=== PATIENT | male | born 1950 | race Caucasian/White ===

== ENCOUNTER 2016-05-22 04:59 | Inpatient (IN) | payer BC ==
[2016-05-15 11:02] LABS: BASOPHILS 0.5 %; BASOPHILS ABSOLUTE 0.03 10/3/uL (0.0-0.16); EOSINOPHILS ABSOLUTE 0.12 10/3/uL (0.0-0.53); HEMOGLOBIN 14.6 g/dL (13.6-17.8); IMMATURE GRANULOCYTES 0.2 %; IMMATURE GRANULOCYTES ABSOLUTE 0.01 10/3/uL (0.0-0.11); LYMPHOCYTES 35.2 %; LYMPHOCYTES ABSOLUTE 2.09 10/3/uL (0.67-4.30); MEAN CORPUSCULAR VOLUME 88.3 fL (80-100); MONOCYTES 12.6 %; MONOCYTES ABSOLUTE 0.75 10/3/uL (0.21-1.20); NEUTROPHILS 49.5 %; NEUTROPHILS ABSOLUTE 2.93 10/3/uL (2.02-8.40); PLATELET COUNT 207 10/3/uL (150-400); RBC DISTRIBUTION WIDTH 12.9 % (12.0-16.0); RED CELL COUNT 4.87 10/6/uL (4.7-6.1); WHITE BLOOD CELLS 5.9 10/3/uL (4.5-10.5)
[2016-05-15 11:04] LABS: MANUAL DIFF NO %
[2016-05-15 11:13] LABS: INTERNATIONAL NORMAL RATI 1.1 UNITS (-); PARTIAL THROMBO TIME 29.7 SEC (22.5-37.2); PROTIME (NOT ORD) 14.2 SEC (12.0-14.5)
[2016-05-15 11:18] LABS: BUN (BLOOD UREA NITROGEN) 28 MG/DL (6-23); CHLORIDE, SERUM 104 MMOL/L (96-112); CO2 (CARBON DIOXIDE) 27 MMOL/L (24-34); CREATININE 1.65 MG/DL (0.70-1.30); GFR AFRICAN AMERICAN 50 ML/MIN (>=60); GFR NON AFRICAN AMERICAN 44 ML/MIN (>=60); GLUCOSE, SERUM 89 MG/DL (60-99); POTASSIUM, SERUM 3.7 MMOL/L (3.5-5.3); SODIUM, SERUM 142 MMOL/L (135-148)
[2016-05-15 11:40] LABS: ASCORBIC ACID (UR NOT ORDER) NEG (NEG); BILIRUBIN, URINE NEGATIVE (NEG); KETONE, URINE TRACE MG/DL (NEG); LEUKOCYTE ESTERASE(NOT OR NEG (NEG); WBC (NOT ORDERED) (RFLEX) < 1 (0-5)
--- NOTE | ~2016-05-22 | HP ---
History And Physical [address] [place]. [address] NAME: BILL IBARRA JR : 54 STATUS : [place] [facility] [place]#: [id number] AGE: 65 ADM/REG DATE : MR#: [id number] REPORT SERV DATE: 05/22/16 DICTATED BY: BYRON DURAN DATE: 05/21/16 REPORT STATUS : Draft TRANSCRIBED BY: MODL DATE: 05/21/16 DATE OF ADMISSION: 05/22/2016 CHIEF COMPLAINT: Adenocarcinoma of the prostate, clinical stage T1c, Holly score 4+3=7, maximum PSA 5.6. HISTORY OF PRESENT ILLNESS: Mr. Ibarra is a 65-year-old male who was recently diagnosed with adenocarcinoma of the prostate, worsening obstructive voiding symptoms and elevated PSA led to the biopsy. Biopsy was positive from the right base and right apex. Different treatment options and management of prostate cancer were proposed to the patient. He has decided to proceed with laparoscopic robot-assisted radical prostatectomy. He will be admitted after that procedure. The patient also has an umbilical hernia, which will be repaired at the same time. The patient reports [id number] obstructive voiding symptoms and erectile dysfunction. PAST MEDICAL HISTORY: Chronic kidney disease, diabetes mellitus, gout, dyslipidemia and hypertension. PAST SURGICAL HISTORY: Includes appendectomy in 1984. MEDICATIONS: Allopurinol, amlodipine, aspirin which has been on hold, carvedilol, tamsulosin, lisinopril, simvastatin, tramadol. ALLERGIES: NO KNOWN DRUG ALLERGIES. SOCIAL HISTORY: He does not smoke. He reports occasional alcohol use. FAMILY HISTORY: Negative for prostate cancer. REVIEW OF SYSTEMS: He wears glasses. Has heartburn with some leg swelling. Hoarseness and ringing in the ears. PHYSICAL EXAMINATION: GENERAL: Shows a well-developed, well-nourished male, in no acute distress. He is afebrile. VITAL SIGNS: Stable with sclerae anicteric. NECK: Supple. LUNGS: Clear. HEART: Regular rate and rhythm. ABDOMEN: Soft, nontender. There are no palpable abdominal masses. There is an umbilical hernia. No inguinal hernias. : Penis normal. Testes are descended. Nontender. No testicular masses. No scrotal masses. History And Physical [address] [address] NAME: BILL IBARRA JR : 54 STATUS : [place] [facility] [place] PAT#: [id number] AGE: 65 ADM/REG DATE : MR#: [id number] REPORT SERV DATE: 05/22/16 DICTATED BY: BYRON DURAN DATE: 05/21/16 REPORT STATUS : Draft TRANSCRIBED BY: LOBO DATE: 05/21/16 RECTAL: The prostate is moderately enlarged. There are no nodules. EXTREMITIES: Lower extremities show no deformities. IMPRESSION: Adenocarcinoma of the prostate. Holly score 3+4=7 from the right base, right mid and right apex. PLAN: Laparoscopic robot-assisted radical prostatectomy and umbilical hernia repair. Potential complications of bleeding, infection, urinary incontinence, bladder neck obstruction, loss of ejaculate, erectile dysfunction, and injury to adjacent structures such as bladder, ureters, rectum, colon, intestine, nerves, as well as bowel obstruction and complications have all been explained to the patient. He both manually and verbally consents to proceed. TAI/LOBO Byron Duran M.D. / [id number]
--- NOTE | ~2016-05-22 | OP ---
Record Of Operation [facility] [address] [place]. [address] NAME: BILL BARR JR : 54 STATUS : ADM IN PAT#: [id number] AGE: 65 ADM/REG DATE : 05/22/16 MR#: [id number] REPORT SERV DATE: 05/23/16 DICTATED BY: BYRON GAN DATE: 05/22/16 REPORT STATUS : Draft TRANSCRIBED BY: MODL DATE: 05/22/16 DATE OF PROCEDURE: 05/22/2016 PREOPERATIVE DIAGNOSES: 1. Adenocarcinoma of the prostate, clinical stage T1c, Houston score 3+4=7, PSA of 5.2. 2. Umbilical hernia. POSTOPERATIVE DIAGNOSES: 1. Adenocarcinoma of the prostate, clinical stage T1c, Holly score 3+4=7, PSA of 5.2. 2. Umbilical hernia. PROCEDURES: 1. Laparoscopic robot-assisted radical prostatectomy. 2. Umbilical hernia repair. RAILROAD SIGNAL AND SWITCH OPERATOR: Ambrose Landry. ANESTHESIA: General and local. BLOOD LOSS: Estimated at 175 mL. FLUID REPLACEMENT: 2 L of crystalloid. DRAINS: An 18-Somali Gan catheter and a 15 mm Eliazar drain in the prevesical space. INDICATION: A 65-year-old male, recently diagnosed with adenocarcinoma of the prostate. He also has a symptomatic umbilical hernia. TECHNIQUE: The patient was identified and brought to the operating room, administered anesthetic agent by the Anesthesia Service, and intubated. He was positioned in the dorsal lithotomy position and appropriately padded and secured to the table. The patient has a symptomatic umbilical hernia. Marcaine plain 0.5% was used to infiltrate around the right side of the umbilicus. A curvilinear incision is made around the umbilicus. A 16-Somali Gan catheter was passed in the bladder and left for drainage. I then exposed the hernia sac and dissected off the undersurface of the skin and the subcutaneous tissues. The fascia was identified surrounding the hernia defect. I mobilized the hernia sac off the fascial edge. I then opened the hernia sac sharply, amputated and sent it for permanent section. I now have access into the peritoneal space. Balloon trocar was placed into the peritoneal space. I had to temporarily close the hernia defects so I can have a good seal and create a pneumoperitoneum. [id number]-kd-kqmjv sutures were used to taper the defect around the balloon trocar. I then insufflated the abdomen with carbon dioxide, creating a pneumoperitoneum. The patient was placed in steep Trendelenburg. A da Hank laparoscope was placed through the trocar. The underlying bowel was inspected and appears intact. I then placed an 8 mm robot arm 9 cm inferior and lateral to the umbilicus on each side. I placed a third robot arm port into the left lower quadrant Record Of Operation [address] [place]. [address] NAME: CORTNEYBILL PLASENCIA : 54 STATUS : ADM IN PAT#: [id number] AGE: 65 ADM/REG DATE : 05/22/16 MR#: [id number] REPORT SERV DATE: 05/23/16 DICTATED BY: BYRON GAN DATE: 05/22/16 REPORT STATUS : Draft TRANSCRIBED BY: MODRoseann DATE: 05/22/16 of the abdomen, and a 12 mm campaign assistant port and a 5 mm campaign assistant port on the right side of the abdomen. Once all ports were in position, da Hank robot was brought to the table and mated to the ports. I took down some adhesions between the sigmoid colon and pelvic side wall. I then opened the peritoneum as it overlaid the seminal structures. The left and right vasa deferentia were dissected out, clipped proximally, and transected distally. The left right seminal vesicles were dissected out. I took frozen section from around the right seminal vesicles. It does not contain any cancer. I opened the Denonvilliers fascia and began to sweep the rectum off the undersurface of the prostate. The rectum was noted to be stuck to the prostate in different locations. Sharp dissection was needed. I then divided medial umbilical ligaments near the umbilicus and dissected out in the space of Retzius. I opened the peritoneum just lateral to the median umbilical ligaments on each side. Bladder swept off the anterior abdominal wall and symphysis pubis. The fat overlying the prostate gland was taken off with sharp dissection. The endopelvic fascia was pierced sharply at the prostatovesical junction and carried distally out to the puboprostatic ligaments bilaterally. Dorsal venous complex was isolated and secured with a laparoscopic KAI stapling device. This was then oversewn with 3-0 PDS. I switched to a 30-degree down lens and developed a plane with the bladder neck and the prostate. I opened the anterior bladder neck and then came through the posterior bladder neck, being careful to avoid the ureteral orifices. I excised the entire median lobe structure. I carried my dissection down to the previously dissected out seminal structures. The lateral attachments of the bladder were taken off the prostate with sharp dissection. At this point, I elevated the seminal structures and continued my dissection of the rectum off the undersurface of the prostate. I did this with mostly sharp dissection. I then released the neurovascular bundles off the apices of the prostate bilaterally. They were somewhat "sticking." However, I am able to mobilize them off the apex of the prostate back towards the posterior pedicle. The posterior pedicles were taken with locking clips and then divided. A part of the neurovascular bundle on the right side was sacrificed because it was adherent to the prostate. I carried the dissection all way out to the apex of the prostate. Last attachments of the striated sphincter taken off the apex of the prostate sharply. The urethra was divided sharply. Frozen sections were taken from the left apical region. No prostate tissue was seen. The posterior striated sphincter was divided and placed in specimen retrieval bag, held for later retrieval. The abdominal pressure was now lowered down to 7 mmHg and the pelvis was irrigated copiously. I noted some bleeding coming from the right robot arm port site. This was addressed at the end of the case. I had to also partially oversew a part of the left neurovascular bundle. Once fastidious hemostasis was achieved, I performed posterior reconstruction in two layers using 3-0 V-Loc. I then tapered the bladder neck with Record Of Operation [address] [place]. [address] NAME: BILL BARR JR : 54 STATUS : ADM IN PAT#: [id number] AGE: 65 ADM/REG DATE : 05/22/16 MR#: [id number] REPORT SERV DATE: 05/23/16 DICTATED BY: BYRON GAN DATE: 05/22/16 REPORT STATUS : Draft TRANSCRIBED BY: LOBO DATE: 05/22/16 horizontal mattress sutures of 3-0 Monocryl at 3 o'clock and 9 o'clock position, being careful to avoid the ureteral orifices. I then anastomosed the urethra onto the bladder neck with running 3-0 V-Loc. Once the anastomosis was completed, I inserted a new 18-Somali Gan catheter. The anastomosis was tested by filling the bladder with 240 mL of saline. It holds without extravasation. The bladder was then drained, 12 mL of sterile water inflated in the catheter balloon. I removed the instrument out with a robot arm port and placed a 15 mm Eliazar drain through that port, leaving it in the prevesical space. I then undocked the da Hank robot. I noted there was some bleeding coming from the robot port site in the right lower quadrant. I removed the port and used the Rocky-Cassidy endoscopic closure system to close the fascia. This does not control the bleeding. I later opened the skin for approximately 3 cm and placed [id number] sutures through the Vicryl in the bleeding tissue. This controlled the bleeding. The string of the specimen bag was transferred out through the umbilical port. The campaign assistant 12 mm port was closed with a Rocky-Cassidy endoscopic closure system. All other ports were removed under low pressure. No port site bleeding was noted. I removed my temporary sutures at the umbilicus, so I could deliver the specimen out through the wound. Once I delivered the specimen out through the wound, I closed the umbilical defect horizontally with [id number] 0 Vicryl sutures. The subcutaneous tissue of all ports was irrigated copiously. I tacked the skin in the umbilicus back down onto the fascia. Subcutaneous tissues were closed with 3-0 Vicryl and skin of all ports closed with 4-0 Monocryl. The drain in the left lower quadrant of the abdomen was sutured to the skin with 2-0 Prolene. Dressings were applied. The catheter secured to the patient. He was awakened and taken to the recovery unit in stable and satisfactory condition. PF/MODL Byron Gan M.D. / [id number]
[~2016-05-22 04:59] MED LIST: ASAB PO; COREG12 PO; DEMA20 PO; EDARBI80 MG PO; FLOMAX4 PO; NORV10 PO; ULTRAM50 PO; VITAMIN D31000 UNIT PO; Z300 PO; ZOCOR40 PO
[2016-05-23 06:27] LABS: HEMATOCRIT 36.9 % (40.0-51.0); HEMOGLOBIN 12.6 g/dL (13.6-17.8)
[2016-05-23 06:36] LABS: CALCIUM, SERUM 8.5 MG/DL (8.5-10.4); CHLORIDE, SERUM 105 MMOL/L (96-112); CO2 (CARBON DIOXIDE) 26 MMOL/L (24-34); CREATININE 1.38 MG/DL (0.70-1.30); GFR AFRICAN AMERICAN 63 ML/MIN (>=60); GFR NON AFRICAN AMERICAN 54 ML/MIN (>=60); POTASSIUM, SERUM 3.8 MMOL/L (3.5-5.3); SODIUM, SERUM 139 MMOL/L (135-148)
[2016-05-23 06:39] LABS: BUN (BLOOD UREA NITROGEN) 19 MG/DL (6-23); GLUCOSE, SERUM 131 MG/DL (60-99)
[2016-05-23] MEDS ORDERED: NORCO1 TA1 PO (08:28)
== END 2016-05-23 12:25 | disposition home or self-care (01) | DRG 708 ==
LOC: SDC 04:59 → PACU 11:40 → 4SO 16:47
PROVIDERS: Urology
PROC: 8E0W4CZ Robotic Assisted Procedure of Trunk Region, Percutaneous Endoscopic Approach (ICD-10-PCS; principal; 2016-05-22 06:30)
PROC: 0WQF0ZZ Repair Abdominal Wall, Open Approach (ICD-10-PCS; principal; 2016-05-22 06:30)
PROC: 0VT04ZZ Resection of Prostate, Percutaneous Endoscopic Approach (ICD-10-PCS; principal; 2016-05-22 06:30)
DX: C61 Malignant neoplasm of prostate (principal); E11.22 Type 2 diabetes mellitus with diabetic chronic kidney disease; N18.3 Chronic kidney disease, stage 3 (moderate); I12.9 Hypertensive chronic kidney disease with stage 1 through stage 4 chronic kidney disease, or unspecified chronic kidney disease; E78.5 Hyperlipidemia, unspecified; M10.9 Gout, unspecified; K42.9 Umbilical hernia without obstruction or gangrene; K21.9 Gastro-esophageal reflux disease without esophagitis
CPT/HCPCS: 80048; 81001; 82962; 83735; 85014; 85018; 85025; 85610; 85730; 87641; 88302; 88305; 88309; 88331; 93005; A9270-GY; J0690; J0735; J1170; J2250; J2710; J3010